=== PATIENT | female | born 1930 | race Caucasian/White ===

== ENCOUNTER 2016-07-24 10:12 | Inpatient (IN) | payer OTHER, MEDICARE ==
[~2016-07-24] VITALS: Ht 165.1 cm; Wt 54.9 kg
--- NOTE | ~2016-07-24 | EKG ---
[address] [address] ELECTROCARDIOGRAM REPORT Name: JESUS BURNETTE Room #: 443- ADM IN M.R.#: [id number] Admission: 07/24/16 Attend Phys: Silvestre Woo MD Discharge: Date of : 34 Report #: [id number] THIS REPORT FOR: //name// [facility] Test Date: 2016-07-24 Test Time: 13:17:53 Pat Name: JESUS BURNETTE Department: Room: 443 Gender: F Customer Success Intern: Zeferino ALMANZAR : 1930 Requested By: Holly Beal Order Number: [id number] MD: Kendall Bolaños Measurements Intervals [place] Rate: 84 P: 55 ME: 147 QRS: 27 QRSD: 83 T: 72 QT: 357 QTc: 422 Interpretive Statements Sinus rhythm RSR' in V1 or V2, right VCD Compared to ECG 03/18/2016 12:17:35 no change Electronically Signed On 07-24-2016 18:25:36 CDT by Kendall Bolaños [email or web address] <ELECTRONICALLY SIGNED> By: Kendall Bolaños MD 07/24/16 1825 16 16 Kendall Bolaños MD /DAY
[~2016-07-24 10:12] MED LIST: ADVAIR 500-501 EACH INH; AMBIEN 5 MG TABL5 M1 PO; ASPIRIN EC81 M1 PO; BENZONATATE100 MG PO; CLARITHROMYCIN250 M2 PO; HYDROCODONE-APA1 TA1 PO; LEVAQUIN 500 M500 M3 PO; LORTAB 5-500 T1 EAC1 PO; MEDROLDOSEPACK PO; MEPROBAMATE 40400 MG PO; MOBIC7.5 MG PO; MUCINEX600 MG PO; NORVASC 5 MG TAB5 MG PO; PREDNISONE 10 M10 MG PO; PREDNISONE 5 MG5 MG PO; PRINIVIL10 MG PO; PROAIR HFA8.5 GM INH; SPIRIVA INH
[2016-07-24 10:15] VITALS: BP 144/64
[2016-07-24 13:10] LABS: BASOPHILS 1.3 % (0.0-2.0); EOSINOPHILS 1.2 % (0.0-3.0); HEMATOCRIT 38.6 % (37.0-47.0); HEMOGLOBIN 12.7 gm/dL (12.0-15.0); LYMPHOCYTES 10.9 % (24.0-44.0); MCH 30.1 pg (26.0-34.0); MCV 91.2 fL (80.0-100.0); MONOCYTES 11.1 % (1.0-8.0); PLATELET COUNT 254 thou/uL (150-400); POLYS 75.5 % (36.0-66.0); RBC 4.23 mil/uL (4.20-5.00); RDW 13.5 % (10.5-14.5); WBC 9.3 thou/uL (4.0-11.0)
[2016-07-24 13:16] LABS: MANUAL DIFF NO
[2016-07-24 13:21] LABS: ANION GAP 5 mmol/L (7-16); BUN 14 mg/dL (7-18); CALCIUM 9.5 mg/dL (8.5-10.1); CHLORIDE 104 mmol/L (98-107); CO2 28 mmol/L (21-32); CREATININE 0.8 mg/dL (0.6-1.3); GLUCOSE 117 mg/dL (70-99); POTASSIUM 4.8 mmol/L (3.5-5.1); SODIUM 137 mmol/L (136-145)
[2016-07-24 13:32] LABS: ALBUMIN 3.8 g/dL (3.4-5.0); ALKALINE PHOSPHATASE 83 U/L (46-116); NT-PRO BRAIN NAT PEPTIDE 65 pg/mL (<300); SGOT 23 U/L (15-37); SGPT 24 U/L (30-65); TOTAL BILIRUBIN 0.3 mg/dL (<0.1-1.0); TOTAL PROTEIN 7.1 g/dL (6.4-8.2); TROPONIN-I < 0.04 ng/mL (<0.04-0.07)
[2016-07-24 16:00] VITALS: BP 136/73
[2016-07-24 19:40] VITALS: BP 150/62
[2016-07-25 04:00] VITALS: BP 111/63
[2016-07-25 04:05] VITALS: BP 141/59
[2016-07-25 08:25] VITALS: BP 130/69
[2016-07-25 11:30] VITALS: BP 141/78
[2016-07-25 16:16] VITALS: BP 150/76
[2016-07-25 21:35] VITALS: BP 125/58
[2016-07-26 04:55] VITALS: BP 120/56
[2016-07-26 08:50] VITALS: BP 146/81
[2016-07-26 11:41] VITALS: BP 119/70
[2016-07-26 16:23] VITALS: BP 134/81
[2016-07-26 19:59] VITALS: BP 145/73
[2016-07-27 04:38] VITALS: BP 142/83
[2016-07-27 08:00] VITALS: BP 138/65
[2016-07-27 12:00] VITALS: BP 120/60
[2016-07-27 13:54] VITALS: BP 120/60
[2016-07-27] MEDS ORDERED: MUCINEX TA600 MG/TA1 PO (13:56)
[2016-07-27] MEDS ORDERED: PREDNISONE 10 M10 MG PO (13:58)
[2016-07-27] MEDS ORDERED: LEVAQUIN 750 M750 MG PO (14:07)
[2016-07-27 22:06] LABS: INFLUENZA B Negative (Negative); METAPNEUMOVIRUS Negative (Negative)
== END 2016-07-27 15:45 | disposition home or self-care (01) | DRG 192 ==
LOC: 4S 10:12
PROVIDERS: Internal Medicine Pulmonary Disease
DX: J44.1 Chronic obstructive pulmonary disease with (acute) exacerbation (principal); I10 Essential (primary) hypertension; Z96.642 Presence of left artificial hip joint; R91.1 Solitary pulmonary nodule; Z85.828 Personal history of other malignant neoplasm of skin; Z87.891 Personal history of nicotine dependence; Z79.82 Long term (current) use of aspirin; Z79.899 Other long term (current) drug therapy
CPT/HCPCS: 10100

== ENCOUNTER 2016-08-26 13:25 | Emergency (ER) | payer OTHER, MEDICARE ==
[~2016-08-26] VITALS: Ht 167.6 cm; Wt 57.6 kg
--- NOTE | ~2016-08-26 | EKG ---
[address] [address] ELECTROCARDIOGRAM REPORT Name: JESUS BURNETTE Room #: [facility]#: [id number] Admission: 08/26/16 Attend Phys: Discharge: 08/26/16 Date of : 32 Report #: [id number] THIS REPORT FOR: //name// [facility] ED Test Date: 2016-08-26 Test Time: 14:40:17 Pat Name: JESUS BURNETTE Department: Room: Gender: F Stick Puller: maurilio : 1930 Requested By: Maya Patel Order Number: [id number] MD: Dillon Pollock Measurements Intervals [place] Rate: 94 P: 36 CA: 139 QRS: -42 QRSD: 90 T: 48 QT: 336 QTc: 421 Interpretive Statements Sinus rhythm Left axis deviation RSR' in V1 or V2, right VCD Compared to ECG 07/24/2016 13:17:53 Left-axis deviation now present Electronically Signed On 08-27-2016 8:20:03 CDT by Dillon Pollock [email or web address] <ELECTRONICALLY SIGNED> By: Dillon Pollock MD, [facility] 08/27/16 08 1440 144 Dillon Pollock MD, [facility] /EPI
[~2016-08-26 13:25] MED LIST changes: +LEVAQUIN 750 M750 MG PO; +MUCINEX TA600 MG/TA1 PO
[2016-08-26] MEDS ORDERED: XANAX 0.25 MG0.25 MG PO (14:27)
[2016-08-26 14:34] LABS: HEMATOCRIT 36.3 % (37.0-47.0); HEMOGLOBIN 11.8 gm/dL (12.0-15.0); MCH 29.2 pg (26.0-34.0); MCHC 32.5 g/dL (28.0-37.0); MCV 89.9 fL (80.0-100.0); PLATELET COUNT 209 thou/uL (150-400); RBC 4.03 mil/uL (4.20-5.00); RDW 13.7 % (10.5-14.5)
[2016-08-26 14:37] LABS: MANUAL DIFF YES
[2016-08-26 14:53] LABS: ALBUMIN 2.9 g/dL (3.4-5.0); ALKALINE PHOSPHATASE 76 U/L (46-116); ANION GAP 8 mmol/L (7-16); BUN 8 mg/dL (7-18); CALCIUM 8.4 mg/dL (8.5-10.1); CHLORIDE 101 mmol/L (98-107); CO2 27 mmol/L (21-32); CREATININE 0.6 mg/dL (0.6-1.0); GLUCOSE 138 mg/dL (74-106); SGOT 18 U/L (15-37); SGPT 16 U/L (30-65); SODIUM 136 mmol/L (136-145); TOTAL BILIRUBIN 0.5 mg/dL (<0.1-1.0); TOTAL PROTEIN 6.7 g/dL (6.4-8.2); TROPONIN-I < 0.04 ng/mL (<0.04-0.07)
[2016-08-26 15:08] LABS: ABSOLUTE NEUTROPHILS 7.2 thou/uL (1.4-8.2); TOTAL CELL COUNT 100
[2016-08-26 15:09] LABS: ANISOCYTOSIS 1+; POLYCHROMASIA OCCASIONAL
[2016-08-26] MEDS ORDERED: PREDNISONE 20 M20 MG PO (16:17)
== END 2016-08-26 17:01 | disposition home or self-care (01) ==
LOC: ER 13:25
PROVIDERS: Physician Assistant
DX: J44.1 Chronic obstructive pulmonary disease with (acute) exacerbation (principal); I10 Essential (primary) hypertension; Z96.642 Presence of left artificial hip joint; Z98.890 Other specified postprocedural states; F10.99 Alcohol use, unspecified with unspecified alcohol-induced disorder

== ENCOUNTER → 2016-09-08 | Outpatient (CLI) | payer OTHER, MEDICARE ==
[~2016-09-08] MED LIST changes: +PREDNISONE 20 M20 MG PO; +XANAX 0.25 MG0.25 MG PO
--- NOTE | ~2016-09-08 | 2DMMODE ---
[facility] [place] [employer] [address] 2 D/M-MODE ECHOCARDIOGRAM Name: JESUS BURNETTE Room #: REG [facility]#: [id number] Admission: 09/08/16 Attend Phys: Loretta Soria Discharge: Date of : 34 Date of Service: 09/08/16 1752 Report #: [id number] THIS REPORT FOR: //name// APPROVED REPORT Study performed: 09/08/2016 13:05:33 EXAM: Comprehensive 2D, Doppler, and color-flow Echocardiogram Patient Location: Out-Patient Blood Pressure: 132/60 mmHg HR: 92 bpm Rhythm: NSR Other Information Study Quality: Good/low parasternal window. Indications COPD Dyspnea 2D Dimensions RVDd: 38.93 mm LVEF(%): 54.64 (>50%) IVSd: 10.26 (7-11mm) LVOT Diam: 20.16 (18-24mm) LVDd: 33.96 mm PWd: 10.21 (7-11mm) LVDs: 24.60 (25-40mm) Aortic Root: 32.39 mm Hoffmann's LVEF: 54.64 % Volumes Left Atrial Volume (Systole) Single Plane 4CH: 28.34 mL Single Plane 2CH: 42.38 mL LA ESV Index: 23.00 mL/m2 Aortic Valve AoV Peak Jordon.: 2.24 m/s AO Peak Gr.: 20.15 mmHg LVOT Max P.49 mmHg AO Mean Gr.: 10.68 mmHg AO V2 Mean: 1.55 m/s LVOT Max V: 1.37 m/s AO V2 VTI: 36.40 cm LIZ Vmax: 1.95 cm2 [facility] [place] [address] 2 D/M-MODE ECHOCARDIOGRAM Name: JESUS BURNETTE Room #: [facility]#: [id number] Admission: 09/08/16 Attend Phys: Loretta Soria Discharge: Date of : 32 Date of Service: 09/08/16 1752 Report #: [id number] Mitral Valve E/A Ratio: 0.6 MV E Max Jordon.: 0.66 m/s MV A Jordon.: 1.14 m/s MV PHT: 0.00 ms IVRT: 69.20 ms Pulmonary Valve PV Peak Jordon.: 1.12 m/s PV Peak Gr.: 4.98 mmHg Pulmonary Vein P Vein S: 65.1 m/s P Vein A: 56.44 m/s P Vein D: 18.2 m/s P Vein A Dur.: 124.6 msec Tricuspid Valve TR Peak Jordon.: 3.26 m/s RAP Estimate: 10.00 mmHg TR Peak Gr.: 42.47 mmHg RVSP: 52.00 mmHg Left Ventricle The left ventricle is normal size. There is normal LV segmental wall motion. There is normal left ventricular wall thickness. Left ventricular systolic function is normal. LVEF is 60%. Grade I - abnormal relaxation pattern. Right Ventricle The right ventricle is normal size. The right ventricular systolic function is normal. Atria The left atrium size is normal. The right atrium size is normal. Aortic Valve Aortic valve is moderately calcified. No aortic regurgitation is present. Mild aortic stenosis. Mitral Valve Mitral valve leaflets are moderately thickened. Mild mitral annular calcification. Trace mitral regurgitation. No evidence of mitral valve stenosis. Tricuspid Valve The tricuspid valve is normal in structure. There is mild to moderate tricuspid regurgitation. The right atrial pressure is estimated at 10 mmHg. There is moderate pulmonary hypertension with an estimated PAP of 52mmHg. [address] [address] 2 D/M-MODE ECHOCARDIOGRAM Name: BURNETTEJESUS Room #: REG [facility]#: [id number] Admission: 09/08/16 Attend Phys: Loretta Soria Discharge: Date of : 32 Date of Service: 09/08/16 1752 Report #: [id number] Pulmonic Valve The pulmonary valve is normal in structure. Trace pulmonic regurgitation. Great Vessels The aortic root is normal in size. Ascending aorta is not well visualized. IVC is dilated and collapses <50% with inspiration. Pericardium There is no pericardial effusion. <Conclusion> The left ventricle is normal size. LVEF is 60%. Aortic valve is moderatelythickened. No aortic regurgitation is present. Mild aortic stenosis. Mitral valve leaflets are moderately thickened. Trace mitral regurgitation. The tricuspid valve is normal in structure. There is mild to moderate tricuspid regurgitation. The right atrial pressure is estimated at 10 mmHg. There is moderate pulmonary hypertension with an estimated PAP of 52mmHg. The pulmonary valve is normal in structure. Trace pulmonic regurgitation. <ELECTRONICALLY SIGNED> By: Moi Ibarra MD 09/08/161751 51 51 Moi Ibarra MD /INF
== END ==
LOC: RAD 12:48 → CV 12:48
DX: R06.00 Dyspnea, unspecified (principal); R06.02 Shortness of breath

== ENCOUNTER → 2017-01-20 | Outpatient (CLI) | payer OTHER, MEDICARE | LOC: RAD 10:20 | DX: J44.9 Chronic obstructive pulmonary disease, unspecified (principal) ==

== ENCOUNTER → 2017-05-24 | Outpatient (CLI) | payer OTHER, MEDICARE ==
[~2017-05-24] MED LIST changes: +LEVAQUIN 500 M500 M1 PO
[2017-05-24 12:19] LABS: HEMATOCRIT 41.4 % (37.0-47.0); HEMOGLOBIN 13.6 gm/dL (12.0-15.0); MCH 29.5 pg (26.0-34.0); MCHC 32.7 g/dL (28.0-37.0); RBC 4.6 mil/uL (4.20-5.00); RDW 15.2 % (10.5-14.5); WBC 7.1 thou/uL (4.0-11.0)
== END ==
LOC: LABMALL 11:28 → SLEEPLAB 13:37 → RAD 13:39
PROVIDERS: Internal Medicine Pulmonary Disease
DX: R06.02 Shortness of breath (principal)

== ENCOUNTER 2018-01-29 10:53 | Emergency (ER) | payer OTHER, MEDICARE ==
[~2018-01-29] VITALS: Ht 167.6 cm; Wt 56.7 kg
--- NOTE | ~2018-01-29 | EKG ---
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: CRUZKAI : 1930 Requested By: Sherron Wadsworth Order Number: [id number] MD: Avni Mattson Measurements Intervals [place] Rate: 89 P: 22 NC: 142 QRS: -59 QRSD: 95 T: 79 QT: 348 QTc: 424 Interpretive Statements Sinus rhythm Left anterior fascicular block Compared to ECG 08/26/2016 14:40:17 Left anterior fascicular block now present Right ventricular hypertrophy now present Left-axis deviation no longer present Electronically Signed On 01-29-2018 13:07:31 CDT by Avni Mattson [email or web address] <ELECTRONICALLY SIGNED> By: Avni Mattson MD 01/29/18 1307 1109 1109 Avni Mattson MD /EPI
[~2018-01-29 10:53] MED LIST changes: -LEVAQUIN 500 M500 M1 PO
[2018-01-29 11:32] LABS: ABSOLUTE NEUTROPHILS 4.8 thou/uL (1.4-8.2); BASOPHILS 0.6 % (0.0-2.0); EOSINOPHILS 2.4 % (0.0-3.0); HEMATOCRIT 41.1 % (37.0-47.0); HEMOGLOBIN 13.9 gm/dL (12.0-15.0); LYMPHOCYTES 16.8 % (24.0-44.0); MCH 32.3 pg (26.0-34.0); MCHC 33.9 g/dL (28.0-37.0); MCV 95.2 fL (80.0-100.0); MONOCYTES 11.9 % (1.0-8.0); PLATELET COUNT 200 thou/uL (150-400); POLYS 68.3 % (36.0-66.0); RBC 4.32 mil/uL (4.20-5.00); RDW 13.4 % (10.5-14.5)
[2018-01-29 11:40] LABS: CALCIUM 9.6 mg/dL (8.5-10.1); CREATININE 0.7 mg/dL (0.6-1.0); POTASSIUM 3.8 mmol/L (3.5-5.1)
[2018-01-29 11:48] LABS: TROPONIN-I 0.06 ng/mL (<0.06)
[2018-01-29] MEDS ORDERED: PREDNISONE 20 M20 MG PO (14:19)
[2018-01-29] MEDS ORDERED: LEVAQUIN 500 M500 M1 PO (14:19)
== END 2018-01-29 14:30 | disposition home or self-care (01) ==
LOC: ER 10:53
PROVIDERS: Emergency Medicine
DX: J44.1 Chronic obstructive pulmonary disease with (acute) exacerbation (principal); I10 Essential (primary) hypertension; Z85.828 Personal history of other malignant neoplasm of skin; Z96.642 Presence of left artificial hip joint; Z87.891 Personal history of nicotine dependence

== ENCOUNTER → 2018-02-14 | Outpatient (CLI) | payer OTHER, MEDICARE ==
[~2018-02-14] MED LIST changes: +LEVAQUIN 500 M500 M1 PO
--- NOTE | ~2018-02-14 | 2DMMODE ---
[facility] [employer] [place] [address] 2 D/M-MODE ECHOCARDIOGRAM Name: JESUS BURNETTE Room #: REG [facility]#: [id number] Admission: 02/14/18 Attend Phys: Mynor Lang, Discharge: Date of : 32 Date of Service: 02/14/18 1534 Report #: [id number] THIS REPORT FOR: //name// APPROVED REPORT Study performed: 02/14/2018 13:58:03 EXAM: Comprehensive 2D, Doppler, and color-flow Echocardiogram Patient Location: Out-Patient Room #: Echo lab @ Status: routine BSA: 1.67 HR: 106 bpm BP: 132/60 mmHg Rhythm: NSR Other Information Study Quality: Adequate Indications COPD Pulmonary Hypertension Dyspnea 2D Dimensions RVDd: 42.24 mm IVSd: 9.18 (7-11mm) LVOT Diam: 17.65 (18-24mm) LVDd: 40.26 mm PWd: 8.88 (7-11mm) Ascending Ao: 32.88 (22-36mm) LVDs: 22.68 (25-40mm) Aortic Root: 29.51 mm IVC: 22.00 mm Volumes Left Atrial Volume (Systole) Single Plane 4CH: 36.57 mL Single Plane 2CH: 28.58 mL LA ESV Index: 22.00 mL/m2 Aortic Valve AoV Peak Jordon.: 2.12 m/s AO Peak Gr.: 18.05 mmHg LVOT Max P.43 mmHg AO Mean Gr.: 10.24 mmHg LVOT Mean P.29 mmHg AO V2 Mean: 1.47 m/s LVOT Max V: 1.26 m/s AO V2 VTI: 40.12 cm LVOT Mean V: 0.83 m/s LIZ (VTI): 1.35 cm2 LVOT V1 VTI: 22.20 cm LIZ Vmax: 1.44 cm2 [facility] [employer] [place] [address] 2 D/M-MODE ECHOCARDIOGRAM Name: JESUS BURNETTE Room #: [facility]#: [id number] Admission: 02/14/18 Attend Phys: Mynor Lang, Discharge: Date of : 32 Date of Service: 02/14/18 1534 Report #: [id number] SV (LVOT): 54.26 mL Mitral Valve E/A Ratio: 0.7 MV Decel. Time: 247.12 ms MV E Max Jordon.: 1.10 m/s MV A Jordon.: 1.54 m/s MV PHT: 71.67 ms IVRT: 141.87 ms Pulmonary Valve PV Peak Jordon.: 1.35 m/s PV Peak Gr.: 7.26 mmHg Pulmonary Vein P Vein S: 0.47 m/s P Vein A: 0.33 m/s P Vein D: 0.25 m/s P Vein A Dur.: 69.2 msec P Vein S/D Ratio: 1.88 Tricuspid Valve TR Peak Jordon.: 3.53 m/s TR Peak Gr.: 49.92 mmHg PA Pressure: 60.00 mmHg Left Ventricle The left ventricle is normal size. There is normal LV segmental wall motion. There is normal left ventricular wall thickness. Left ventricular systolic function is hyperdynamic. LVEF is 70%. Grade I - abnormal relaxation pattern. Right Ventricle Right ventricle is dilated. The right ventricular systolic function is normal. Atria The left atrium size is normal. Right atrium is dilated. Aortic Valve The aortic valve is normal in structure. Aortic valve is calcified. No aortic regurgitation is present. Mild aortic stenosis. Mitral Valve The mitral valve is normal in structure. There is no mitral valve regurgitation noted. No evidence of mitral valve stenosis. Tricuspid Valve The tricuspid valve is normal in structure. There is mild tricuspid [address] [address] 2 D/M-MODE ECHOCARDIOGRAM Name: LOIS BURNETTERox Jennings Room #: [facility]#: [id number] Admission: 02/14/18 Attend Phys: Mynor Lang, Discharge: Date of : 32 Date of Service: 02/14/18 1534 Report #: [id number] regurgitation. Estimated PAP 60 mmHg. There is moderate pulmonary hypertension. Pulmonic Valve The pulmonary valve is normal in structure. Trace pulmonic regurgitation. Great Vessels The aortic root is normal in size. IVC is dilated and collapses >50% with inspiration. Pericardium There is no pericardial effusion. <Conclusion> The left ventricle is normal size. LVEF is 70%. Right ventricle is dilated. Right atrium is dilated. The aortic valve is normal in structure. Aortic valve is calcified. Mild aortic stenosis. The mitral valve is normal in structure. The tricuspid valve is normal in structure. There is mild tricuspid regurgitation. Estimated PAP 60 mmHg. There is moderate pulmonary hypertension. The pulmonary valve is normal in structure. Trace pulmonic regurgitation. There is no pericardial effusion. <ELECTRONICALLY SIGNED> By: oMi Ibarra MD 02/14/18 1534 1534 153 Moi Ibarra MD /INF
== END ==
LOC: CV 02-07 06:29
DX: I07.1 Rheumatic tricuspid insufficiency (principal); I35.0 Nonrheumatic aortic (valve) stenosis; I35.8 Other nonrheumatic aortic valve disorders; J44.9 Chronic obstructive pulmonary disease, unspecified; I27.20 Pulmonary hypertension, unspecified

== ENCOUNTER 2018-04-19 11:17 | Emergency (ER) | payer OTHER, MEDICARE ==
[~2018-04-19] VITALS: Ht 167.6 cm; Wt 59.0 kg
--- NOTE | ~2018-04-19 | EKG ---
[address] [address] [facility] [place] [address] ELECTROCARDIOGRAM REPORT Name: YOMAIRAJESUS Jennings Room #: [facility]#: [id number] Admission: 04/19/18 Attend Phys: Discharge: 04/19/18 Date of : 32 Report #: [id number] THIS REPORT FOR: //name// [facility] ED Test Date: 2018-04-19 Test Time: 11:28:38 Pat Name: JESUS BURNETTE Department: Room: Gender: F New Media Strategist: ZAG : 1930 Requested By: Arnold Natarajan Order Number: [id number] MD: Dillon Pollock Measurements Intervals [place] Rate: 95 P: -26 WV: 145 QRS: -66 QRSD: 85 T: 74 QT: 338 QTc: 425 Interpretive Statements Sinus rhythm Left anterior fascicular block RSR' in V1 or V2, right VCD Compared to ECG 01/29/2018 11:09:00 No significant change was found Electronically Signed On 04-19-2018 17:20:24 JUNIOR LINUX ADMINISTRATOR by Dillon Pollock [email or web address] <ELECTRONICALLY SIGNED> By: Dillon Pollock MD, [facility] 04/19/18 9375 1128 1128 Dillon Pollock MD, [facility] /EPI
--- NOTE | ~2018-04-19 | EKG ---
[address] [address] [facility] [address] [place] [address] ELECTROCARDIOGRAM REPORT Name: JESUS BURNETTE Room #: 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
[2018-04-19 11:49] LABS: ABSOLUTE NEUTROPHILS 5.4 thou/uL (1.4-8.2); BASOPHILS 0.6 % (0.0-2.0); EOSINOPHILS 1.2 % (0.0-3.0); HEMATOCRIT 42.8 % (37.0-47.0); HEMOGLOBIN 14.6 gm/dL (12.0-15.0); LYMPHOCYTES 11.6 % (24.0-44.0); MCH 32.5 pg (26.0-34.0); MCHC 34.1 g/dL (28.0-37.0); MCV 95.3 fL (80.0-100.0); MONOCYTES 8.6 % (1.0-8.0); PLATELET COUNT 215 thou/uL (150-400); RBC 4.48 mil/uL (4.20-5.00)
[2018-04-19 12:01] LABS: APTT 23.9 Seconds (24.5-32.8); PROTIME 10.7 Seconds (9.3-11.4)
[2018-04-19 12:02] LABS: ANION GAP 6 mmol/L (7-16); BUN 16 mg/dL (7-18); CALCIUM 9.1 mg/dL (8.5-10.1); CHLORIDE 103 mmol/L (98-107); CO2 30 mmol/L (21-32); CREATININE 0.7 mg/dL (0.6-1.0); GLUCOSE 142 mg/dL (74-106); POTASSIUM 4.1 mmol/L (3.5-5.1); SODIUM 139 mmol/L (136-145)
[2018-04-19 12:06] LABS: ALBUMIN 3.7 g/dL (3.4-5.0); MAGNESIUM 1.9 mg/dL (1.8-2.4); SGOT 24 U/L (15-37); SGPT 25 U/L (30-65); TOTAL BILIRUBIN 0.4 mg/dL (<0.1-1.0); TOTAL PROTEIN 7.1 g/dL (6.4-8.2); TROPONIN-I <0.06 ng/mL (<0.06)
[2018-04-19] MEDS ORDERED: PRILOSEC 20 MG20 MG PO (13:10)
[2018-04-19 13:43] VITALS: BP 166/66
== END 2018-04-19 13:45 | disposition home or self-care (01) ==
LOC: ER 11:17
PROVIDERS: Emergency Medicine; Physician Assistant
DX: K21.9 Gastro-esophageal reflux disease without esophagitis (principal); J44.9 Chronic obstructive pulmonary disease, unspecified; I10 Essential (primary) hypertension; Z85.828 Personal history of other malignant neoplasm of skin; Z96.642 Presence of left artificial hip joint; Z87.891 Personal history of nicotine dependence

== ENCOUNTER 2018-08-11 15:27 | Inpatient (IN) | payer OTHER, MEDICARE ==
[~2018-08-11] VITALS: Ht 167.6 cm; Wt 65.3 kg
[2018-08-11 15:27] VITALS: BP 128/63
[~2018-08-11 15:27] MED LIST changes: +PRILOSEC 20 MG20 MG PO
[2018-08-11 16:01] LABS: HEMATOCRIT 43.8 % (37.0-47.0); HEMOGLOBIN 14.5 gm/dL (12.0-15.0); MCH 31.5 pg (26.0-34.0); MCHC 33.1 g/dL (28.0-37.0); MCV 95.1 fL (80.0-100.0); RBC 4.6 mil/uL (4.20-5.00); RDW 13.7 % (10.5-14.5); WBC 7.6 thou/uL (4.0-11.0)
[2018-08-11 16:07] LABS: BE(vivo) 2.6 mmol/L (-2 to +3); HCO3 27.6 mmol/L (22.0-26.0); PCO2 43.8 mmHg (35.0-45.0); PO2 66.2 mmHg (80.0-100.0); pH 7.417 (7.360-7.450); sO2 93.3 % (92.0-98.0)
[2018-08-11 16:10] LABS: ANION GAP 9 mmol/L (7-16); BUN 14 mg/dL (7-18); CALCIUM 9.6 mg/dL (8.5-10.1); CHLORIDE 105 mmol/L (98-107); CO2 31 mmol/L (21-32); CREATININE 0.7 mg/dL (0.6-1.0); GLUCOSE 165 mg/dL (74-106); POTASSIUM 4.4 mmol/L (3.5-5.1); SODIUM 145 mmol/L (136-145)
[2018-08-11 16:18] LABS: TROPONIN-I <0.06 ng/mL (<0.06)
[2018-08-11 17:47] VITALS: BP 151/74
[2018-08-11 18:22] VITALS: BP 145/70
[2018-08-11 18:54] VITALS: BP 175/74
[2018-08-11 19:40] VITALS: BP 156/71
--- NOTE | 2018-08-12 02:23 | NUR ---
PT ORIENTATED TO ROOM AND CALL LIGHT PT A0X4 PT PROVIDED HX FOR HEALTH ASSESMENT PT USED CALL LIGHT EFFECTIVELY NO ISSUES OVERNIGHT.
[2018-08-12 03:50] VITALS: BP 121/50
[2018-08-12 07:35] VITALS: BP 144/74
[2018-08-12 14:32] VITALS: BP 141/79
--- NOTE | 2018-08-12 14:40 | NUR ---
PT ADMITTED RELATED TO SHORTNESS OF AIR. CM REVIEWED CHART AND SPOKE WITH CARE TEAM. CM MET WITH PT AT BEDSIDE THIS DAY. PT IS A&O X4. CM ROLE INTRODUCED. PT INDICATED SHE LIVES IN A HOUSE WITH HER SPOUSE WITH 2 STEPS TO ENTER THROUGH THE FRONT WITH HANDRAIL AND NONE INSIDE. 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 PT HAD BEEN ON 2L O2 CONT SUPERVISOR SAFETY DEPOSIT. SHE HAS O2 THROUGH [employer] AND HAS A PORTABLE CONCENTRATOR. PT'S PCP IS DR. MELVINA THOMAS. SHE INDICATED SHE HAD HH SERVICES WITH A HIP REPALCEMENT YEARS AGO. PT INDICATED SHE PLANS TO RETURN HOME ONCE MEDICALLY STABLE. CM TO FOLLOW INDICATED WITH DC PLANNING.
--- NOTE | 2018-08-12 16:11 | NUR ---
Received patient awake and oriented. On oxygen inhalation at 2Lpm via nasal cannula. On blood sugar monitoring, Pre lunch reading of 158mg/dl, 3 units Insulin(Humalog) given subcutaneously as prescribed. Visited by relative today. Assisted in ambulating, extension tubing for oxygen provided. Vital signs stable the whole shift.
[2018-08-12 20:24] VITALS: BP 118/73
--- NOTE | 2018-08-13 01:50 | NUR ---
PT USED CALL LIGHT EFFECTIELY NO ISSUES OVERNIGHT NO COMPLAINTS OF PAIN.
[2018-08-13 05:14] VITALS: BP 147/61
[2018-08-13 08:00] VITALS: BP 142/84
[2018-08-13] MEDS ORDERED: LEVAQUIN 500 M500 M2 PO (10:13)
[2018-08-13] MEDS ORDERED: PREDNISONE 20 M20 MG PO (10:13)
[2018-08-13 10:25] VITALS: BP 142/84
--- NOTE | 2018-08-13 15:35 | NUR ---
Received awake on bed, alert and oriented. With oxygen inhalation at 2 liters per minute via nasal cannula. Vital signs stable throughout the shift. Blood sugar monitoring pre-meals: Pre-breakfast reading of 154mg/dl, 3 units Insulin(Humalog) given as prescribed. Ambulating to the bathroom, oxygen extension provided to patient. Seen and examined by Dr. Dorman today, for discharge tomorrow. Patient with IV at L Forearm, patent and intact, receiving IV steroids.
[2018-08-13 16:23] VITALS: BP 141/64
--- NOTE | 2018-08-13 18:23 | EKG ---
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: TERELL : 1930 Requested By: Gilmer Raphael Order Number: [id number] MD: Moi Ibarra Measurements Intervals [place] Rate: 106 P: 45 MI: 134 QRS: -62 QRSD: 88 T: 65 QT: 332 QTc: 441 Interpretive Statements Sinus tachycardia left atrial enlargement Left anterior fascicular block RSR' in V1 Compared to ECG 04/19/2018 11:28:38 Sinus tachycardia now present Electronically Signed On 08-13-2018 18:23:07 CDT by Moi Ibarra [email or web address] ��������������������������������������������� <ELECTRONICALLY SIGNED> ���������������������������������������� By: Moi Ibarra MD ��������������������������������������������� 08/13/18 1823 1544 1544 Moi Ibarra MD /EPI
--- NOTE | 2018-08-14 03:59 | NUR ---
PT SLEPT MOST OF THE NIGHT NO COMPLAINTS OF PAIN PT USED CALL LIGHT EFFECTIVELY NO ISSUES OVERNIGHT.
[2018-08-14 04:26] VITALS: BP 139/77
[2018-08-14 08:13] VITALS: BP 148/86
[2018-08-14 08:23] VITALS: BP 148/86
[2018-08-14] MEDS ORDERED: FLONASE 0.05%50 MCG NASAL (11:08)
--- NOTE | 2018-08-14 11:41 | NUR ---
DIS PT IS FOR DC TODAY. IV AND TELE DC'D. MEDSCRIPTS AND DC PACKET PROVIDED.
== END 2018-08-14 14:16 | disposition home or self-care (01) | DRG 871 ==
LOC: ER 15:27 → EROBS 17:17 → 4W 17:17
PROVIDERS: Emergency Medicine; ADMIT Hospitalist
DX: A41.9 Sepsis, unspecified organism (principal); J96.01 Acute respiratory failure with hypoxia; J44.1 Chronic obstructive pulmonary disease with (acute) exacerbation; J44.0 Chronic obstructive pulmonary disease with (acute) lower respiratory infection; F41.9 Anxiety disorder, unspecified; J20.9 Acute bronchitis, unspecified; I10 Essential (primary) hypertension; Z96.642 Presence of left artificial hip joint; Z99.81 Dependence on supplemental oxygen; Z85.828 Personal history of other malignant neoplasm of skin; Z87.891 Personal history of nicotine dependence; Z91.040 Latex allergy status
CPT/HCPCS: 10045

== ENCOUNTER → 2018-09-05 | Outpatient (CLI) | payer OTHER, MEDICARE ==
[~2018-09-05] MED LIST changes: +FLONASE 0.05%50 MCG NASAL; +LEVAQUIN 500 M500 M2 PO
--- NOTE | 2018-09-05 15:31 | 2DMMODE ---
[facility] [place] [employer] [place] [address] 2 D/M-MODE ECHOCARDIOGRAM Name: JESUS BURNETTE Room #: REG COUNTS INCLUDE 234 BEDS AT [facility]#: [id number] ������������� Admission: 09/05/18 ������������� Attend Phys: Mynor Lang, Discharge: ��� ������������� ��� Date of : 34 Date of Service: 09/05/18 1531 �� Report #: [id number] �������� ��������������������������������������������[id number] THIS REPORT FOR: //name// APPROVED REPORT Study performed: 09/05/2018 13:57:38 EXAM: Comprehensive 2D, Doppler, and color-flow Echocardiogram Patient Location: Out-Patient Status: routine BSA: 1.65 HR: 92 bpm BP: 140/70 mmHg Rhythm: NSR Other Information Study Quality: Good Indications CAD. Hx: HTN, COPD 2D Dimensions RVDd: 37.84 mm IVSd: 11.28 (7-11mm) LVOT Diam: 18.90 (18-24mm) LVDd: 34.37 mm PWd: 9.84 (7-11mm) LVDs: 23.43 (25-40mm) Aortic Root: 30.85 mm Volumes Left Atrial Volume (Systole) Single Plane 4CH: 48.75 mL Single Plane 2CH: 54.01 mL LA ESV Index: 33.00 mL/m2 Aortic Valve AoV Peak Jordon.: 2.87 m/s AO Peak Gr.: 33.04 mmHg LVOT Max P.11 mmHg AO Mean Gr.: 17.16 mmHg AO V2 Mean: 1.91 m/s LVOT Max V: 1.42 m/s AO V2 VTI: 48.64 cm LIZ Vmax: 1.39 cm2 Mitral Valve E/A Ratio: 0.7 [facility] [place] [address] 2 D/M-MODE ECHOCARDIOGRAM Name: JESUS BURNETTE Room #: [facility]#: [id number] ������������� Admission: 09/05/18 ������������� Attend Phys: Mynor Lang, Discharge: ��� ������������� ��� Date of : 34 Date of Service: 09/05/18 1531 �� Report #: [id number] �������� ��������������������������������������������[id number] MV Decel. Time: 397.27 ms MV E Max Jordon.: 0.80 m/s MV A Jordon.: 1.23 m/s MV PHT: 115.21 ms IVRT: 87.66 ms Pulmonary Valve PV Peak Jordon.: 1.26 m/s PV Peak Gr.: 6.31 mmHg Pulmonary Vein P Vein S: 0.87 m/s P Vein D: 0.37 m/s P Vein S/D Ratio: 2.35 Tricuspid Valve TR Peak Jordon.: 4.13 m/s RAP Estimate: 10.00 mmHg TR Peak Gr.: 68.30 mmHg PA Pressure: 78.00 mmHg Left Ventricle The left ventricle is normal size. There is normal LV segmental wall motion. Mild concentric left ventricular hypertrophy. Left ventricular systolic function is normal. LVEF is 65%. Mild diastolic dysfunction is present (impaired relaxation pattern). Right Ventricle The right ventricle is normal size. The right ventricular systolic function is normal. Atria Left atrium is at the upper limits of normal. The right atrium size is normal. Aortic Valve Aortic valve is trileaflet and moderately calcified. No aortic regurgitation is present. There is mild to moderate valvular aortic stenosis. Calculated aortic valve area is 1.4 cm2 with maximum pressure gradient of 33 mmHg and mean pressure gradient of 17 mmHg. Mitral Valve Mitral valve leaflets are mildly thickened. Mild mitral regurgitation. Tricuspid Valve The tricuspid valve is normal in structure. Moderate tricuspid [facility] [address] [place] [place] [address] 2 D/M-MODE ECHOCARDIOGRAM Name: JESUS BURNETTE Room #: REG COUNTS INCLUDE 234 BEDS AT [facility]#: [id number] ������������� Admission: 09/05/18 ������������� Attend Phys: Mynor Lang, Discharge: ��� ������������� ��� Date of : 34 Date of Service: 09/05/18 1531 �� Report #: [id number] �������� ��������������������������������������������[id number] regurgitation. Estimated PAP is 70mmHg. Pulmonic Valve The pulmonary valve is normal in structure. Trace pulmonic regurgitation. Great Vessels The aortic root is normal in size. IVC is dilated and collapses <50% with inspiration. Pericardium There is no pericardial effusion. <Conclusion> The left ventricle is normal size. Mild concentric left ventricular hypertrophy. Left ventricular systolic function is normal. Mild diastolic dysfunction is present (impaired relaxation pattern). The right ventricle is normal size. Left atrium is at the upper limits of normal. The right atrium size is normal. There is mild to moderate valvular aortic stenosis. Calculated aortic valve area is 1.4 cm2 with maximum pressure gradient of 33 mmHg and mean pressure gradient of 17 mmHg. Mitral valve leaflets are mildly thickened. Mild mitral regurgitation. Moderate tricuspid regurgitation. Estimated PAP is 70mmHg. ��������������������������������������������� <ELECTRONICALLY SIGNED> ���������������������������������������� By: Kendall Bolaños MD ��������������������������������������������� 09/05/18 1531 1531 153 Kendall Bolaños MD /INF
== END ==
LOC: CV 07:33
DX: I08.3 Combined rheumatic disorders of mitral, aortic and tricuspid valves (principal); J43.9 Emphysema, unspecified; I10 Essential (primary) hypertension; I25.10 Atherosclerotic heart disease of native coronary artery without angina pectoris; I70.0 Atherosclerosis of aorta; M47.815 Spondylosis without myelopathy or radiculopathy, thoracolumbar region; I27.20 Pulmonary hypertension, unspecified; Z90.49 Acquired absence of other specified parts of digestive tract; Z91.048 Other nonmedicinal substance allergy status

== ENCOUNTER 2019-06-16 23:01 | Emergency (ER) | payer OTHER, MEDICARE ==
[~2019-06-16] VITALS: Ht 175.3 cm; Wt 61.2 kg
[2019-06-17 00:35] VITALS: BP 106/66
== END 2019-06-17 00:37 | disposition home or self-care (01) ==
LOC: ER 23:01
DX: S61.412A Laceration without foreign body of left hand, initial encounter (principal); S51.811A Laceration without foreign body of right forearm, initial encounter; S61.411A Laceration without foreign body of right hand, initial encounter; W01.0XXA Fall on same level from slipping, tripping and stumbling without subsequent striking against object, initial encounter; Y93.01 Activity, walking, marching and hiking; Y92.89 Other specified places as the place of occurrence of the external cause; Y99.8 Other external cause status

== ENCOUNTER → 2020-01-26 | Outpatient (CLI) | payer OTHER, MEDICARE ==
[2020-01-26 12:44] LABS: BE(vivo) 5.4 mmol/L (-2 to +3); HCO3 30.5 mmol/L (22.0-26.0); PCO2 45.9 mmHg (35.0-45.0); sO2 81.9 % (92.0-98.0)
[2020-01-26 12:45] LABS: PO2 44.6 mmHg (80.0-100.0)
== END ==
LOC: PUL 12:15
PROVIDERS: ATTEND Internal Medicine
DX: J44.9 Chronic obstructive pulmonary disease, unspecified (principal)

== ENCOUNTER 2020-03-31 08:43 | Emergency (ER) | payer OTHER, MEDICARE ==
[~2020-03-31] VITALS: Ht 167.6 cm; Wt 61.2 kg
[2020-03-31 09:44] LABS: HEMATOCRIT 39.2 % (37.0-47.0); HEMOGLOBIN 12.8 gm/dL (12.0-15.0); MCH 31.3 pg (26.0-34.0); MCHC 32.6 g/dL (28.0-37.0); RBC 4.08 mil/uL (4.20-5.00); RDW 13.5 % (10.5-14.5); WBC 9.4 thou/uL (4.0-11.0)
[2020-03-31 09:52] LABS: CALCIUM 9.3 mg/dL (8.5-10.1); CREATININE 0.9 mg/dL (0.6-1.0); POTASSIUM 3.8 mmol/L (3.5-5.1)
[2020-03-31] MEDS ORDERED: PROAIR HFA8.5 GM INH (10:16)
[2020-03-31] MEDS ORDERED: PREDNISONE 5 MG5 M1 PO (10:17)
[2020-03-31] MEDS ORDERED: AMBIEN 5 MG TABL5 M1 PO (10:20)
[2020-03-31 11:13] VITALS: BP 168/81
== END 2020-03-31 11:14 | disposition home or self-care (01) ==
LOC: ER 08:43
PROVIDERS: Emergency Medicine
DX: S41.112A Laceration without foreign body of left upper arm, initial encounter (principal); S20.211A Contusion of right front wall of thorax, initial encounter; S05.12XA Contusion of eyeball and orbital tissues, left eye, initial encounter; I10 Essential (primary) hypertension; J44.9 Chronic obstructive pulmonary disease, unspecified; Z79.899 Other long term (current) drug therapy; Z87.891 Personal history of nicotine dependence; Z91.040 Latex allergy status; W18.39XA Other fall on same level, initial encounter; Y93.89 Activity, other specified; Y92.89 Other specified places as the place of occurrence of the external cause; Y99.8 Other external cause status